=== PATIENT | female | born 1955 | race Caucasian/White ===

== ENCOUNTER → 2018-12-25 08:03 | Outpatient (CLI) | payer OTHER, SELFPAY ==
--- NOTE | 2018-12-25 | DI.MG.S_ITS ---
BILATERAL DIGITAL SCREENING MAMMOGRAM 3D/2D WITH CAD: 12/25/2018 CLINICAL: Routine screening. Comparison is made to exams dated: 12/24/2017 mammogram, 12/23/2016 mammogram, and 12/22/2015 mammogram - [facility]. There are scattered fibroglandular elements in both breasts. Current study was also evaluated with a Computer Aided Detection (CAD) system. No significant masses, calcifications, or other findings are seen in either breast. There has been no significant interval change. IMPRESSION: NEGATIVE There is no mammographic evidence of malignancy. A 1 year screening mammogram is recommended. This exam was interpreted at Station ID: [id number]. NOTE: For mammograms, a report in lay terms will be sent to the patient. Approximately 15% of breast malignancies will not be visualized mammographically. In the management of a palpable breast mass, a negative mammogram must not discourage biopsy of a clinically suspicious lesion. Electronically Signed By: Jacquelyn mello/yumi:12/25/2018 11:21:56 letter sent: Normal Exam ACR BI-RADS Category 1: Negative 3341F
== END ==
PROVIDERS: PCP Family Medicine; Visit Provider Family Medicine
DX: Z12.31 Encounter for screening mammogram for malignant neoplasm of breast (principal)
CPT/HCPCS: 77063; 77067

== ENCOUNTER → 2019-01-14 09:55 | Outpatient (CLI) | payer OTHER, SELFPAY ==
--- NOTE | 2019-01-14 | DI.RAD.S_ITS ---
PROCEDURE: XR HAND LT MIN 3V INDICATIONS: BILATERAL HAND PAIN TECHNIQUE: 3 views of the hand(s) acquired. COMPARISON: None. FINDINGS: Metallic rings project over the mid diaphysis of the left fourth proximal phalanx, obscuring underlying anatomy. Bones: No fractures or dislocations. Carpal bones are normally aligned. There are minimal degenerative changes of the first through fifth interphalangeal joints and first carpometacarpal joint. Soft tissues: No suspicious soft tissue calcifications. IMPRESSION: Minimal degenerative changes of the left first through fifth interphalangeal joints and left first carpometacarpal joint. Dictated by: Kasi Solano M.D. on 01/14/2019 at 11:11 Approved by: Kasi Solano M.D. on 01/14/2019 at 11:15
--- NOTE | 2019-01-14 | DI.RAD.S_ITS ---
PROCEDURE: XR HAND RT MIN 3V INDICATIONS: BILATERAL HAND PAIN TECHNIQUE: 3 views of the hand(s) acquired. COMPARISON: None. FINDINGS: A metallic ring projects over the mid diaphysis of the right fourth proximal phalanx, obscuring underlying anatomy. Bones: No fractures or dislocations. Carpal bones are normally aligned. There are minimal degenerative changes of the right first through fifth interphalangeal joints and right first carpometacarpal joint. Soft tissues: No suspicious soft tissue calcifications. IMPRESSION: Minimal degenerative changes of the right first through fifth interphalangeal joints and right first carpometacarpal joint. Dictated by: Kasi Solano M.D. on 01/14/2019 at 11:15 Approved by: Kasi Solano M.D. on 01/14/2019 at 11:18
== END ==
PROVIDERS: PCP Family Medicine; Visit Provider Nurse Practitioner Family
DX: M79.642 Pain in left hand (principal); M79.641 Pain in right hand
CPT/HCPCS: 73130

== ENCOUNTER → 2019-12-29 07:33 | Outpatient (CLI) | payer OTHER, SELFPAY ==
--- NOTE | 2019-12-29 | DI.MG.S_ITS ---
BILATERAL DIGITAL SCREENING MAMMOGRAM 3D/2D WITH CAD: 12/29/2019 CLINICAL: Routine screening. Comparison is made to exams dated: 12/25/2018 mammogram, 12/24/2017 mammogram, and 12/23/2016 mammogram - [facility]. There are scattered fibroglandular elements in both breasts. Current study was also evaluated with a Computer Aided Detection (CAD) system. No significant masses, calcifications, or other findings are seen in either breast. There has been no significant interval change. IMPRESSION: NEGATIVE There is no mammographic evidence of malignancy. A 1 year screening mammogram is recommended. This exam was interpreted at Station ID: [id number]. NOTE: For mammograms, a report in lay terms will be sent to the patient. Approximately 15% of breast malignancies will not be visualized mammographically. In the management of a palpable breast mass, a negative mammogram must not discourage biopsy of a clinically suspicious lesion. Electronically Signed By: Winston leyva/yumi:12/29/2019 08:38:58 letter sent: Normal Exam ACR BI-RADS Category 1: Negative 3341F
== END ==
PROVIDERS: PCP Family Medicine; Referring Provider Family Medicine; Visit Provider Family Medicine
DX: Z12.31 Encounter for screening mammogram for malignant neoplasm of breast (principal)
CPT/HCPCS: 77063; 77067

== ENCOUNTER → 2021-01-05 08:22 | Outpatient (CLI) | payer OTHER, SELFPAY ==
--- NOTE | 2021-01-05 | DI.MG.S_ITS ---
BILATERAL DIGITAL SCREENING MAMMOGRAM 3D/2D WITH CAD: 01/05/2021 CLINICAL: Routine screening. Comparison is made to exams dated: 12/29/2019 mammogram, 12/25/2018 mammogram, and 12/24/2017 mammogram - [facility]. There are scattered fibroglandular elements in both breasts. Current study was also evaluated with a Computer Aided Detection (CAD) system. No significant masses, calcifications, or other findings are seen in either breast. There has been no significant interval change. IMPRESSION: NEGATIVE There is no mammographic evidence of malignancy. A 1 year screening mammogram is recommended. This exam was interpreted at Station ID: [id number]. NOTE: For mammograms, a report in lay terms will be sent to the patient. Approximately 15% of breast malignancies will not be visualized mammographically. In the management of a palpable breast mass, a negative mammogram must not discourage biopsy of a clinically suspicious lesion. Electronically Signed By: Gus kumar/penarely:01/05/2021 08:46:52 letter sent: Normal Exam ACR BI-RADS Category 1: Negative 3341F
== END ==
PROVIDERS: PCP Family Medicine; Referring Provider Family Medicine; Visit Provider Family Medicine
DX: Z12.31 Encounter for screening mammogram for malignant neoplasm of breast (principal)
CPT/HCPCS: 77063; 77067

== ENCOUNTER → 2022-01-08 11:23 | Outpatient (CLI) | payer OTHER, SELFPAY ==
--- NOTE | 2022-01-08 | DI.MG.S_ITS ---
BILATERAL DIGITAL SCREENING MAMMOGRAM 3D/2D WITH CAD: 01/08/2022 CLINICAL: Routine screening. Comparison is made to exams dated: 01/05/2021 mammogram, 12/29/2019 mammogram, 12/25/2018 mammogram, 12/24/2017 mammogram, and 12/23/2016 mammogram - [facility]. There are scattered fibroglandular elements in both breasts. Current study was also evaluated with a Computer Aided Detection (CAD) system. No significant masses, calcifications, or other findings are seen in either breast. There has been no significant interval change. IMPRESSION: NEGATIVE There is no mammographic evidence of malignancy. A 1 year screening mammogram is recommended. This exam was interpreted at Station ID: [id number]. NOTE: For mammograms, a report in lay terms will be sent to the patient. Approximately 15% of breast malignancies will not be visualized mammographically. In the management of a palpable breast mass, a negative mammogram must not discourage biopsy of a clinically suspicious lesion. Electronically Signed By: Conrad troy/yumi:01/08/2022 14:08:11 letter sent: Normal Exam ACR BI-RADS Category 1: Negative 3341F
== END ==
PROVIDERS: PCP Family Medicine; Referring Provider Family Medicine; Visit Provider Family Medicine
DX: Z12.31 Encounter for screening mammogram for malignant neoplasm of breast (principal)
CPT/HCPCS: 77063; 77067

== ENCOUNTER → 2022-03-19 10:54 | Outpatient (CLI) | payer OTHER, SELFPAY ==
--- NOTE | 2022-03-19 11:05 | DI.US.S_ITS ---
PROCEDURE: US PERIPH VENOUS LOW EXTREM LT INDICATIONS: Atherosclerosis of [place] arteries of extremities TECHNIQUE: Real-time imaging, as well as color and pulse Doppler interrogation, were performed of the lower extremity deep veins from the inguinal ligament to the popliteal fossa. COMPARISON: None. FINDINGS: The common femoral, femoral and popliteal veins are normally compressible, and free of intraluminal thrombus. Color and pulse Doppler demonstrate normal phasic intraluminal flow. There is normal augmentation response to distal compression maneuver. IMPRESSION: Negative for deep venous thrombosis. Dictated by: Gilbert Rodriguez M.D. on 03/19/2022 at 10:48 Approved by: Gilbert Rodriguez M.D. on 03/19/2022 at 10:48
== END ==
PROVIDERS: PCP Family Medicine; Referring Provider Chiropractor Independent Medical Examiner; Visit Provider Chiropractor Independent Medical Examiner
DX: I70.212 Atherosclerosis of native arteries of extremities with intermittent claudication, left leg (principal)
CPT/HCPCS: 93971

== ENCOUNTER → 2022-06-11 16:46 | Outpatient (CLI) | payer OTHER, SELFPAY ==
--- NOTE | 2022-06-11 16:48 | DI.RAD.S_ITS ---
PROCEDURE: XR KNEE LT 3V INDICATIONS: LEFT KNEE TECHNIQUE: 3 views of the knee were acquired. COMPARISON: [facility], , KNEE 3V RIGHT, 02/28/2017, 9:23. FINDINGS: Bones: No fractures or dislocations. Small osteophytes. Mild joint space narrowing. No suspicious bony lesions. Soft tissues: Trace joint effusion. No suspicious soft tissue calcifications. 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 Dictated by: Conrad Escobar M.D. on 06/12/2022 at 9:33 Approved by: Conrad Escobar M.D. on 06/12/2022 at 9:36
== END ==
PROVIDERS: PCP Family Medicine; Referring Provider Family Medicine; Visit Provider Family Medicine
DX: M25.562 Pain in left knee (principal); M17.12 Unilateral primary osteoarthritis, left knee
CPT/HCPCS: 73562

== ENCOUNTER → 2022-06-18 08:12 | Outpatient (CLI) | payer OTHER, SELFPAY ==
--- NOTE | 2022-06-18 | DI.RAD.S_ITS ---
PROCEDURE: XR KNEE LT 1TO2V INDICATIONS: LEFT KNEE PAIN TECHNIQUE: 1 views of the knee were acquired. COMPARISON: [facility], , XR KNEE LT 3V, 06/11/2022, 17:04. FINDINGS: Bones: There is a nondisplaced vertical lucency within the proximal tibial metaphysis. Tricompartmental arthritic changes also present most severe medially. Soft tissues: No joint effusion. No suspicious soft tissue calcifications. IMPRESSION: Vertical nondisplaced lucency within the tibial metaphysis. While this could be artifactual, fracture cannot be excluded. Recommend interval follow-up in 7-[address] as indicated for further evaluation. Dictated by: Sarita Ovalles M.D. on 06/18/2022 at 15:53 Approved by: Sarita Ovalles M.D. on 06/18/2022 at 15:54
== END ==
PROVIDERS: PCP Family Medicine; Referring Provider Family Medicine; Visit Provider Family Medicine
DX: M25.562 Pain in left knee (principal)
CPT/HCPCS: 73560

== ENCOUNTER → 2022-06-28 10:17 | Outpatient (CLI) | payer OTHER, SELFPAY ==
--- NOTE | 2022-06-28 | DI.CT.S_ITS ---
PROCEDURE: CT KNEE LEFT WITHOUT CON INDICATIONS: Pain in left knee TECHNIQUE: Noncontrast 1-1.5 mm axial sections acquired from the mid-patella to the proximal tibia, with coronal and sagittal reformats. COMPARISON: Merged With [facility], CR, XR KNEE LT 3V, 06/11/2022, 17:04. Merged With [facility], CR, XR KNEE LT 1TO2V, 06/18/2022, 8:20. FINDINGS: Image quality: Excellent. Bones: No acute osseous fracture or dislocation. Previously seen linear lucency at the proximal tibial metaphysis is considered artifactual. Moderate joint space narrowing is seen at the weight-bearing portion of the medial femorotibial compartment with subchondral sclerosis and marginal osteophyte formation. Small marginal osteophytes are seen at the lateral and anterior compartments. Small superior and inferior patellar enthesophytes. Soft tissues: Mild heterotopic calcification posterior to the proximal tibia. Small joint effusion. Small medial popliteal cyst. The articular cartilages, menisci, ligaments, and tendons are not well evaluated with standard CT. The musculature surrounding the knee is normal in bulk. IMPRESSION: 1. No acute osseous fracture. 2. 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 3. Small joint effusion. Small medial popliteal cyst. Dictated by: Gary Alfaro M.D. on 06/28/2022 at 12:28 Approved by: Gary Alfaro M.D. on 06/28/2022 at 12:32
== END ==
PROVIDERS: PCP Family Medicine; Referring Provider Family Medicine; Visit Provider Family Medicine
DX: M25.562 Pain in left knee (principal); M17.12 Unilateral primary osteoarthritis, left knee; M25.462 Effusion, left knee; M71.22 Synovial cyst of popliteal space [Baker], left knee
CPT/HCPCS: 73700

== ENCOUNTER → 2023-01-16 09:10 | Outpatient (CLI) | payer OTHER, SELFPAY ==
--- NOTE | 2023-01-16 | DI.MG.S_ITS ---
BILATERAL DIGITAL SCREENING MAMMOGRAM 3D/2D WITH CAD: 01/16/2023 CLINICAL: Routine screening. Comparison is made to exams dated: 01/08/2022 mammogram, 01/05/2021 mammogram, and 12/29/2019 mammogram - [facility]. There are scattered areas of fibroglandular density in both breasts (category b / 25%-50% glandular tissue). Current study was also evaluated with a Computer Aided Detection (CAD) system. There are mole markers on the right breast. There is a mole marker on the left breast. No significant masses, calcifications, or other findings are seen in either breast. There has been no significant interval change. IMPRESSION: NEGATIVE There is no mammographic evidence of malignancy. A 1 year screening mammogram is recommended. Based on the Tyrer Cuzick model (a risk assessment model) the patient's lifetime risk is 4.6% and her 10 year risk is 2.5%. According to the ACR, ACS, and NCCN guidelines, an annual breast MRI exam along with mammogram is recommended if the patient's lifetime risk is 20% or greater. This exam was interpreted at Station ID: [id number]. NOTE: For mammograms, a report in lay terms will be sent to the patient. Approximately 15% of breast malignancies will not be visualized mammographically. In the management of a palpable breast mass, a negative mammogram must not discourage biopsy of a clinically suspicious lesion. Electronically Signed By: Simon ferrer/yumi:01/16/2023 15:43:49 letter sent: Normal Exam ACR BI-RADS Category 1: Negative 3341F
== END ==
PROVIDERS: PCP Family Medicine; Referring Provider Family Medicine; Visit Provider Family Medicine
DX: Z12.31 Encounter for screening mammogram for malignant neoplasm of breast (principal)
CPT/HCPCS: 77063; 77067

== ENCOUNTER 2023-07-20 20:39 | Emergency (ER) | payer OTHER, SELFPAY ==
[2023-07-20 21:34] VITALS: BP 165/77; PULSE 71; RESP 16; TEMP 36.4; O2SAT 98; BMI 31.6
[2023-07-20 22:55] LABS: Bacteria Urine Many (>30); Culture Indicated Urine Specimen Cultured; RBC Urine 0-1/HPF (0-5/HPF); Squamous Epithelial Cell Urine 1-5 /HPF (0-5/HPF); WBC Urine 30-100/HPF (0-5/HPF)
[2023-07-21 02:58] VITALS: PULSE 60; O2SAT 99
[2023-07-21 03:00] VITALS: BP 147/77; PULSE 62; O2SAT 99
[2023-07-21 03:30] VITALS: BP 140/77; PULSE 65; O2SAT 99
--- NOTE | 2023-07-21 03:52 | ED.FEMALEGU ---
HPI - Female Genitourinary General Chief complaint: Urogenital-Female Stated complaint: Bladder inf Time Seen by Provider: 07/21/23 03:50 Source: patient Mode of arrival: Ambulatory History of Present Illness HPI Narrative: Patient healthy 68-year-old female who presents today with painful frequent urination symptoms that he thinks are UTI. She is had many UTIs in the past she does not she is had any antibiotic resistance it has been awhile since she had her last 1. No fever or chills no back pain no abdominal pain no nausea or vomiting. Related Data Home Medications Medication Instructions Recorded Confirmed lisinopril 5 mg tablet 5 mg PO DAILY 02/26/19 02/26/19 Previous Rx's Medication Instructions Recorded cephalexin 500 mg capsule 500 mg PO BID 5 days #10 caps 07/21/23 phenazopyridine 100 mg tablet 100 mg PO TID PRN pain 6 doses #6 07/21/23 (Pyridium) tabs Allergies Allergy/AdvReac Type Severity Reaction Status Date / Time No Known Drug Allergies Allergy Verified 02/26/19 14:07 Review of Systems Review of Systems ROS Unobtainable: All systems reviewed & are unremarkable except as noted in HPI and below Patient History Substance Use Type: does not use Exam Initial Vital Signs Initial Vital Signs: Vital Signs Temperature 97.6 F 07/20/23 21:34 Pulse Rate 71 07/20/23 21:34 Respiratory Rate 16 07/20/23 21:34 Blood Pressure 165/77 H 07/20/23 21:34 Pulse Oximetry 98 07/20/23 21:34 Oxygen Delivery Method Room Air 07/20/23 21:34 GENERAL: Alert very pleasant 68-year-old female CARDIOVASCULAR: peripheral pulses in tact, cap refill <2 sec RESPIRATORY: No respiratory distress, speaks in full sentences without difficulty ABDOMEN: Soft, nontender, no guarding or rebound : No CVA tenderness EXTREMITIES: Normal range of motion, no clubbing or edema. Neurovascularly intact NEUROLOGICAL: Cranial nerves II through XII grossly intact. Normal gait and speech. SKIN: Warm, dry, no petechiae, no rashes or lesions. Course Orders Ordered: ED Orders 07/20/23 21:49 Urine Culture Stat Urine Microscopic Stat Discontinued Medications Cefazolin Sodium (Cephalexin 250 Mg Cap Prepack) 1 bottle [facility] ONE Stop: 07/21/23 03:57 Last Admin: 07/21/23 04:11 Dose: 1 bottle Documented By: NICHOLAS Phenazopyridine HCl (Phenazopyridine 100 Mg Tablet) 100 mg PO NOW ONE Stop: 07/21/23 03:57 Last Admin: 07/21/23 04:11 Dose: 100 mg Documented By: NICHOLAS Vital Signs Vital signs: Vital Signs - 8 hr 07/21/23 02:58 07/21/23 03:00 07/21/23 03:00 Pulse Rate 60 62 Blood Pressure 147/77 H Pulse Oximetry 99 99 07/21/23 03:30 07/21/23 03:30 07/21/23 04:00 Pulse Rate 65 Blood Pressure 140/77 153/75 H Pulse Oximetry 99 07/21/23 04:00 Pulse Rate 62 Blood Pressure Pulse Oximetry 99 MDM - Female Genitourinary Lab Data Labs: Lab Results 07/20/23 Range/Units 21:49 Urine RBC 0-1/hpf (0-5/HPF) Urine WBC 30-100/hpf H (0-5/HPF) Ur Squamous Epith Cells 1-5 /hpf (0-5/HPF) Urine Bacteria Many (>30) H (None) Ur Culture Indicated? Specimen cultured Urine Dip Bedside Urine Glucose Negative Bedside Urine Bilirubin - Negative Bedside Urine Ketone - Negative Urine Specific [place] 1.000 Bedside Urine Occult Blood + Bedside Urine pH 7.0 Bedside Urine Protein +/- 15 Bedside Urine Urobilinogen - Negative Bedside Urine Nitrite - Negative Bedside Urine Leukocytes +++ 500 Esterase MDM Narrative Medical decision making narrative: Patient 68-year-old female who presents today with painful frequent urination symptoms consistent with UTI. She is no evidence of sepsis has appears very well. We will start her on antibiotics no need for further evaluation or workup at this time. Discharge Plan Departure Patient Disposition: Home Clinical Impression: UTI (urinary tract infection) Instructions: DI for Urinary Tract Infection (UTI) Activity Restrictions/Additional Instructions: *You have been diagnosed with UTI *What to do: Increase fluid intake as tolerated symptoms improve within 24-48 hours after starting antibiotics *Continue to take medications as directed--> SAF[facility]AY Pyridium 100 mg 3 times daily if needed for painful frequent urination Keflex 500 mg twice a day for 5 days *Follow up with your primary care provider in 2-3 days or call [phone] *Return to ER if you should have increasing pain, nausea vomiting fever confusion or any new, worsening or concerning symptoms Prescriptions: New phenazopyridine [Pyridium] 100 mg tablet 100 mg PO TID PRN (Reason: pain) Qty: 6 0RF cephalexin 500 mg capsule 500 mg PO BID 5 Days Qty: 10 0RF No Action lisinopril 5 mg tablet 5 mg PO DAILY Referrals: Esvin Blanc MD [Primary Care Provider] - Stand Alone Forms: Patient Portal/API
[2023-07-21 04:00] VITALS: BP 153/75; PULSE 62; O2SAT 99
[2023-07-21] MEDS: PHENAZOPYRIDINE 100 MG TABLET PO (04:11)
[2023-07-21] MEDS: cephALEXin 250 MG CAP PREPACK 1 BOTTLE MISC (04:11)
== END 2023-07-21 04:15 | disposition home or self-care (01) ==
PROVIDERS: Emergency Provider Emergency Medicine; PCP Family Medicine
DX: N39.0 Urinary tract infection, site not specified (principal)
CPT/HCPCS: 81003; 81015; 87077; 87086; 87186; 99283

== ENCOUNTER → 2024-01-20 09:58 | Outpatient (CLI) | payer OTHER, SELFPAY ==
--- NOTE | 2024-01-20 10:00 | DI.MG.S_ITS ---
BILATERAL DIGITAL SCREENING MAMMOGRAM 3D/2D WITH CAD: 01/20/2024 CLINICAL: Routine screening. Comparison is made to exams dated: 01/16/2023 mammogram, 01/08/2022 mammogram, and 01/05/2021 mammogram - [facility]. There are scattered areas of fibroglandular density in both breasts (category b / 25%-50% glandular tissue). Current study was also evaluated with a Computer Aided Detection (CAD) system. There are mole markers on the right breast. There is a mole marker on the left breast. No significant masses, calcifications, or other findings are seen in either breast. There has been no significant interval change. IMPRESSION: NEGATIVE There is no mammographic evidence of malignancy. A 1 year screening mammogram is recommended. Based on the Tyrer Cuzick model (a risk assessment model) the patient's lifetime risk is 4.3% and her 10 year risk is 2.5%. According to the ACR, ACS, and NCCN guidelines, an annual breast MRI exam along with mammogram is recommended if the patient's lifetime risk is 20% or greater. This exam was interpreted at Station ID: [id number]. NOTE: For mammograms, a report in lay terms will be sent to the patient. Approximately 15% of breast malignancies will not be visualized mammographically. In the management of a palpable breast mass, a negative mammogram must not discourage biopsy of a clinically suspicious lesion. Electronically Signed By: Tonja [email or web address]/yumi:01/20/2024 17:29:34 letter sent: Normal Exam ACR BI-RADS Category 1: Negative 3341F
== END ==
PROVIDERS: PCP Family Medicine; Referring Provider Family Medicine; Visit Provider Family Medicine
DX: Z12.31 Encounter for screening mammogram for malignant neoplasm of breast (principal); R92.323 Mammographic fibroglandular density, bilateral breasts
CPT/HCPCS: 77063; 77067

== ENCOUNTER → 2025-01-25 08:29 | Outpatient (CLI) | payer OTHER, SELFPAY ==
--- NOTE | 2025-01-25 08:31 | DI.MG.S_ITS ---
MM screening mammo BI: 01/25/2025. BI-RADS: 1 CLINICAL: 70-year old female for bilateral screening mammogram. Tyrer-Cuzick lifetime risk of 4.9%. No personal or first-degree family history of breast cancer. PRIOR EXAMS 01/20/2024, 01/16/2023, 01/08/2022, 01/05/2021, 12/29/2019, 12/25/2018, 12/24/2017, 12/23/2016, 12/22/2015. MAMMOGRAPHY TECHNIQUE: 2D and 3D (tomosynthesis) digital mammographic views obtained, with additional images as needed for full coverage. Current study was also evaluated with a Computer Aided Detection (CAD) system. DENSITY B. There are scattered areas of fibroglandular density. MAMMOGRAPHY FINDINGS Bilateral: No suspicious mass, asymmetry, microcalcification, or other abnormality seen. No significant change from comparison. IMPRESSION: * No evidence of malignancy. RECOMMENDATIONS Bilateral * Annual screening mammography. OVERALL ASSESSMENT CATEGORY BI-RADS-1: Negative. The [employer] recommends annual screening mammography beginning at age 40 for women with average risk of breast cancer. ELECTRONICALLY SIGNED: Anjali Mora M.D. on 01/25/2025 at 12:35:12 PM PT Interpreting Station ID: [id number]
== END ==
PROVIDERS: PCP Family Medicine; Referring Provider Family Medicine; Visit Provider Family Medicine
DX: Z12.31 Encounter for screening mammogram for malignant neoplasm of breast (principal)
CPT/HCPCS: 77063; 77067